=== PATIENT | male | born 1995 | race Caucasian/White ===

== ENCOUNTER 2019-08-29 18:52 | Emergency (ER) | payer OTHER, SELFPAY ==
--- NOTE | ~2019-08-29 | XR_ITS ---
EXAMINATION: XR chest 2V DATE: 08/29/2019 19:16 INDICATION: Shortness of breath and cough TECHNIQUE: PA and lateral views of the chest are obtained. COMPARISON: None available FINDINGS: The lungs are free of acute opacities. There is no pleural effusion or pneumothorax. The ca rdiomediastinal silhouette is normal. The visualized bones and soft tissues are unremarkable. IMPRESSION: 1. No acute cardiopulmonary abnormality. Reviewed, dictated and finalized at location A.
[2019-08-29 18:59] VITALS: BP 123/56; PULSE 69; RESP 20; TEMP 36.4; O2SAT 100
--- NOTE | 2019-08-29 19:00 | ED.URI ---
HPI - URI/Sore Throat General Chief Complaint: Upper Respiratory Infection Stated Complaint: SOB/cough Time Seen by Provider: 08/29/19 18:59 Source: patient and RN notes reviewed Mode of arrival: other Limitations: no limitations History of Present Illness HPI Narrative: Pt is a 23 y/o male who presents to the ED with c/o SOB that began 1.5 weeks ago, but progressively worsened the past 2 days. Pt states that he quit vaping two weeks ago d/t the pandemic. Pt states that he would vape regularly everyday for a year. Pt denies using a nicotine replacement since he quit vaping. He notes that he went to [place], [place] and [place], [place] this month. Pt also reports feel anxious, but denies cough, fever, leg swelling, chest congestion, nasal discharge, and chest pain. MD elicited complaint: other (dyspnea) Onset (ago): week(s) (1.5) Consistency: constant Severity: mild Able to tolerate fluids by mouth: Yes Context: other (quit vaping) Associated symptoms: other (feeling anxious) Related Data Home Medications Medication Instructions Recorded Confirmed No Home Medications 08/29/19 08/29/19 Allergies Allergy/AdvReac Type Severity Reaction Status Date / Time No Known Allergies Allergy Mild Verified 08/29/19 19:02 Review of Systems Review of Systems: All systems reviewed & are unremarkable except as noted in HPI and below Constitutional: Constitutional: Denies fever(s) ENT: Denies nasal discharge Cardiovascular: Cardiovascular: Denies chest pain and Denies leg edema Respiratory: Respiratory: Denies chest congestion, Denies cough and Reports dyspnea Psychiatric: Psychiatric: Reports anxiety PMFSH Past Medical History Medical History (Updated 08/30/19 @ 00:00 by Mamadou Chi) Radial fracture Surgical History Surgical History (Updated 08/29/19 @ 19:02 by Christina Young) Hx of adenoidectomy Hx of tonsillectomy Social History Social History (Updated 08/29/19 @ 19:15 by Christina Young) Smoking status: Former smoker Tobacco type: e-cigarettes Additional smoking assessment comments: On 08/29/19, pt states that he quit vaping two weeks ago. Exam Narrative: Exam Narrative: GENERAL: Well-appearing, well-nourished, and in no acute distress. HEAD: Normocephalic, atraumatic EYES: PERRLA and EOMI, conjunctiva clear without discharge EARS: TM's clear bilaterally without erythema or dullness NOSE: Nares clear, no rhinorrhea or epistaxis THROAT:Mucous membranes moist, Oropharynx normal without erythema, exudate, peritonsillar swelling or fluctuance NECK: Supple, without lymphadenopathy or mass RESPIRATORY: No respiratory distress, Airway patent, Respirations non-labored, Clear to auscultation without rales, rhonchi or wheeze HEART: Regular rate and rhythm. No murmur heard. Normal peripheral pulses. ABDOMEN: Soft, nontender, nondistended, normal active bowel sounds. No masses. No rebound or guarding, No organomegaly. EXTREMITIES: No edema, normal strength with full range of motion. SKIN: Warm, dry, normal color without rash NEURO: Alert and oriented x3. CN 2-12 grossly intact. No focal deficits. PSYCH: Normal mood and affect. Course Reevaluation(s) Reevaluation #1: I Discussed with patient that his labs and xray are unremarkable. PAtient may be dealing with anxiety from stopping nicotine use. Date: 08/29/19 Time: 21:01 Vital Signs Vital signs: Vital Signs Temperature 97.6 F 08/29/19 18:59 Pulse Rate 69 08/29/19 18:59 Respiratory Rate 20 08/29/19 18:59 Blood Pressure 123/56 L 08/29/19 18:59 Pulse Oximetry 100 08/29/19 18:59 Temperature 98.2 F 08/29/19 21:19 Pulse Rate 80 08/29/19 21:19 Respiratory Rate 20 08/29/19 21:19 Blood Pressure 112/70 08/29/19 21:19 Pulse Oximetry 99 08/29/19 21:19 MDM - URI/Sore Throat Lab Data Result diagrams: 08/29/19 19:28 08/29/19 19:28 Labs: Lab Results 08/29/19 08/29/19
[2019-08-29 19:35] LABS: Basophils Percent Auto 0.6 % (0.2-1.2); Eosinophils Absolute Auto 0.1 K/mm3 (0-0.3); Eosinophils Percent Auto 1.2 % (0-4.4); Hematocrit 41.1 % (42.0-52.0); Hemoglobin 14.5 g/dL (14.0-18.0); Immature Granulocyte Absolute 0.01 K/mm3 (0.00-0.031); Immature Granulocyte Percent A 0.1 % (0-0.5); Lymphocytes Absolute Auto 1.69 K/mm3 (0.9-3.2); Lymphocytes Percent Auto 24.8 % (18.3-44.2); Mean Corpuscular HGB Conc 35.3 g/dl (32-36); Mean Corpuscular Hemoglobin 32.4 pg (26-34); Mean Corpuscular Volume 91.7 fl (80-100); Mean Platelet Volume 10.3 fl (7.4-10.4); Monocytes Absolute Auto 0.4 K/mm3 (0.1-0.6); Monocytes Percent Auto 5.3 % (2.6-8.5); Neutrophils Absolute Auto 4.6 K/mm3 (1.3-6.7); Platelet Count Result 306 k/mm3 (150-375); Red Blood Count 4.48 M/mm3 (4.6-6.20); Red Cell Distribution Width 11.5 % (11.5-14.5); White Blood Count 6.8 K/mm3 (4.5-10.0)
[2019-08-29 19:47] LABS: Alanine Aminotransferase 17 U/L (4-50); Albumin Level 5.2 g/dL (3.5-5.1); Alkaline Phosphatase 73 U/L (38-126); Aspartate Amino Transferase 25 U/L (17-59); Bilirubin,Total 0.2 mg/dL (0.2-1.3); Blood Urea Nitrogen 12 mg/dL (9-20); Calcium 9.6 mg/dL (8.4-10.2); Carbon Dioxide 25 mmol/L (22-30); Chloride 104 mmol/L (98-107); Estimated CRCL calculation 120 ml/min; Estimated Glomerular Filt Rate > 60; Glucose 88 mg/dL (75-110); Potassium 3.7 mmol/L (3.4-5.0); Sodium 139 mmol/L (137-145)
[2019-08-29 21:19] VITALS: BP 112/70; PULSE 80; RESP 20; TEMP 36.8; O2SAT 99
== END 2019-08-29 21:21 | disposition home or self-care (01) ==
PROVIDERS: Emergency Provider General Practice
DX: R06.00 Dyspnea, unspecified (principal); Z87.891 Personal history of nicotine dependence
CPT/HCPCS: 36415; 71046; 80053; 85025; 85380; 99283